=== PATIENT | male | born 1985 | race Caucasian/White ===

== ENCOUNTER 2022-03-02 22:16 | Emergency (ER) | payer OTHER, SELFPAY ==
--- NOTE | 2022-03-02 22:12 | ED.OVERDOSE ---
HPI - Overdose General Chief Complaint: Overdose Stated Complaint: overdose Time Seen by Provider: 03/02/22 22:24 Related Data Previous Rx's Medication Instructions Recorded naloxone 4 mg/actuation nasal 4 mg intranasal Q2M PRN opioid 03/02/22 spray (Narcan) overdose #2 ea ondansetron 4 mg disintegrating 4 mg PO ONCE PRN nausea and 03/03/22 tablet vomiting #10 tabs Allergies Allergy/AdvReac Type Severity Reaction Status Date / Time No Known Allergies Allergy Verified 03/02/22 22:20 [facility] Social History Social History Alcohol intake: never Patient Tobacco Use Status: Current everyday Tobacco user Use of substances other than those prescribed or required for medical reasons: Yes Substance Use Type: Heroin Advance Directives: No Advance Directives Information Provided: Yes Physical Exam Vital Signs: Vital Signs: Last Vital Signs Temp 98.6 F 03/02/22 22:29 Pulse 94 03/03/22 02:12 Resp 15 03/03/22 02:12 BP 98/59 L 03/03/22 02:12 Pulse Ox 98 03/03/22 02:12 O2 Del Method 03/03/22 02:12 BMI result Body Mass Index 29.5 MDM - Overdose Lab Data Labs: Lab Results 03/02/22 Range/Units 22:25 POC Glucose 338 H (60-115) mg/dL Discharge Plan Discharge Clinical Impression: Overdose of fentanyl Patient Disposition: Home, Self-Care Additional Instructions: Take your medications as prescribed. If you were prescribed antibiotics today, it is important that you take your medication to their entirety, do not skip any doses, do not finish them early. Follow-up with your primary care provider this week. Return to the emergency department with new or worsening symptoms. Such as fevers, chills, chest pain, shortness of breath, nausea, vomiting, dizziness, headache, vision changes, lethargy In case of emergency call 911 We offered use substance use disorder evaluation however you refuse. We will give you resources to go home with. I have sent Narcan to her pharmacy. Prescriptions: New naloxone [Narcan] 4 mg/actuation spray,non-aerosol 4 mg intranasal Q2M PRN (Reason: opioid overdose) Qty: 2 0RF Rx Instructions: spray 1 dose into ONE nostril; alternate nostrils w each dose until help arrives ondansetron 4 mg tablet,disintegrating 4 mg PO ONCE PRN (Reason: nausea and vomiting) Qty: 10 0RF Referrals: Physician,Unknown J [Primary Care Provider] - 2 days Interventions: ED Discharge Assessment Last Done: 03/03/22 02:13 Discharge Date/Time: 03/03/22 02:13
[2022-03-02 22:22] VITALS: BP 134/74; PULSE 110; BMI 29.5
--- NOTE | 2022-03-02 22:24 | ED_ITS ---
HPI - Overdose General Chief Complaint: Overdose Stated Complaint: overdose Time Seen by Provider: 03/02/22 22:24 Source: patient and EMS Mode of arrival: EMS Limitations: no limitations History of Present Illness HPI Narrative: 37 year old male history of opiate abuse presenting to the emergency department via ambulance for a fentanyl overdose just prior to his arrival. According to EMS patient was found unresponsive with paraphernalia around him, he was found by his girlfriend. Patient was bagged on the scene and was given 8 mg of intranasal Narcan before he woke up. Patient reports that he has fentanyl, tells me he has been clean for 2 months he tells me that he bought a quarter of a g and use less than a quarter of that. I asked him why he used drugs today he tells me I am not sure I do not think my tolerance is where it use to be . He denies suicidal and homicidal ideation. Denies anxiety and depression. Denies any medical complaints at this time. According to EMS and patient no trauma, no falls and no head strike. Patient would not like to speak to somebody for substance use disorder, refusing a substance use disorder evaluation. EMS did report that they had a sugar in the 400s, patient is not a diabetic. We obtained his sugar upon his arrival and it was mid 300s. Patient tells us that he ate prior to overdosing. MD complaint: accidental overdose Onset (ago): minute(s) (35) Timing confirmed by: other (Girlfriend ) Related Data Previous Rx's Medication Instructions Recorded naloxone 4 mg/actuation nasal 4 mg intranasal Q2M PRN opioid 03/02/22 spray (Narcan) overdose #2 ea Allergies Allergy/AdvReac Type Severity Reaction Status Date / Time No Known Allergies Allergy Verified 03/02/22 22:20 Review of Systems Review of Systems: Constitutional : No Weight loss, No Fever, No Chills, No Fatigue, No Malaise ENT/Mouth : No sore throat, No Rhinorrhea Eyes: No Eye Pain, No Swelling, No Redness Cardiovascular : No Chest Pain, No SOB, No Dyspnea on Exertion, No Orthopnea, No Edema, No Palpitations Respiratory : No Cough, No Sputum, No Wheezing Gastrointestinal : No Nausea, No Vomiting, No Diarrhea, No Constipation, No abdominal Pain, No Hematochezia, No Melena Genitourinary : No Dysuria, No Urinary Frequency, No Hematuria, Musculoskeletal : No joint pain, No Myalgias, No Joint Swelling Skin : No Skin Lesions, No rash Neuro : No Weakness, No Numbness, No Dizziness, No Headache Psych : No Anxiety/Panic, No Depression, No SI/HI All other systems reviewed and are negative Yes all other systems are reviewed and are negative [facility] Past Medical History Attestation statement: The following information was validated with the patient. Source: old records reviewed and nursing notes reviewed Social History Social History Alcohol intake: never Patient Tobacco Use Status: Current everyday Tobacco user Use of substances other than those prescribed or required for medical reasons: Yes Substance Use Type: Heroin Physical Exam Vital Signs: Vital Signs: Last Vital Signs Temp 98.6 F 03/02/22 22:29 Pulse 107 H 03/02/22 22:29 Resp 15 03/02/22 22:29 BP 141/89 H 03/02/22 22:29 Pulse Ox 96 03/02/22 22:29 O2 Del Method 03/02/22 22:29 BMI result Body Mass Index 29.5 VSS Appearance: Alert.? Oriented X3.? No acute distress.? Head: Normocephalic, atraumatic, no step-offs or deformities Eyes: Pupils equal, round and reactive to light.? ENT: Pharynx normal.? Neck: Normal inspection.? Neck supple.? CVS: Normal heart rate and rhythm.? Pulses normal.? Respiratory: No respiratory distress.? Breath sounds normal.? Abdomen: Soft and nontender.? Skin: Skin warm and dry.? Normal skin color.? Normal skin turgor.? Extremities: No lower extremity edema.? No calf ttp. 5/5 strength to bilateral upper and lower extremities Back: No midline tenderness, no C-spine tenderness, full range of motion, no CVA tenderness bilaterally Neuro: Oriented X 3.? No motor deficit.? No sensory deficit. CN 2-12 intact Course Reevaluation(s) Reevaluation #1: Patient's vital signs have remained stable. Patient refusing further intervention. Initially he was vomiting, received Zofran and this has improved his symptoms. At this time he feels better. Denying SI and HI. Again refusing substance use disorder evaluation. At this time patient will be discharged home. Will discharge him with Narcan. Time: 00:52 Reevaluation #2: Patient tells me he is feeling much better. Neuro exam nonfocal, ambulating with steady gait. Requesting to go home. He will be picked up by his girlfriend. Time: 01:21 MDM - Overdose MDM Narrative Medical decision making narrative: 2219 37-year-old male presents with accidental fentanyl overdose after being clean for 2 months. Denies medical complaints at this time. Denies SI and HI. Was initially bagged by EMS and given 8 mg of intranasal Narcan. Physical examination benign. No evidence signs of trauma. Neuro exam is nonfocal. Patient following commands alert and oriented x3, vital signs stable. Plan at this time is to monitor patient, cardiac monitoring. No signs of acute trauma, no headache, vision changes or dizziness therefore no need for head CT at this time. Lungs are clear low suspicion for pneumonia or pulmonary edema. Patient refusing a substance use disorder evaluation. Medical Records Attestation: I reviewed the patient's medical records. Lab Data Attestation: I reviewed the patient's lab results. Labs: Lab Results 03/02/22 Range/Units 22:25 POC Glucose 338 H (60-115) mg/dL Critical Care Time Critical Care Time Critical Care Time: No Discharge Plan Discharge Clinical Impression: Overdose of fentanyl Patient Disposition: Home, Self-Care Additional Instructions: Take your medications as prescribed. If you were prescribed antibiotics today, it is important that you take your medication to their entirety, do not skip any doses, do not finish them early. Follow-up with your primary care provider this week. Return to the emergency department with new or worsening symptoms. Such as fevers, chills, chest pain, shortness of breath, nausea, vomiting, dizziness, headache, vision changes, lethargy In case of emergency call 911 We offered use substance use disorder evaluation however you refuse. We will give you resources to go home with. I have sent Narcan to her pharmacy. Prescriptions: New naloxone [Narcan] 4 mg/actuation spray,non-aerosol 4 mg intranasal Q2M PRN (Reason: opioid overdose) Qty: 2 0RF Rx Instructions: spray 1 dose into ONE nostril; alternate nostrils w each dose until help a rrives
[2022-03-02 22:29] VITALS: BP 141/89; PULSE 107; RESP 15; TEMP 37; O2SAT 96
[2022-03-02 22:29] LABS: Glucose, Whole Blood 338 mg/dL (60-115)
--- NOTE | 2022-03-02 22:47 | PC.NURSE ---
Provider made aware of patients POC. Provider does not want an IV line.
[2022-03-02] MEDS: Ondansetron ODT 4 MG TAB.RAPDIS TRANSLINGU (23:09)
[2022-03-03 02:12] VITALS: BP 98/59; PULSE 94; RESP 15; O2SAT 98
== END 2022-03-03 02:13 | disposition home or self-care (01) ==
PROVIDERS: Emergency Provider Internal Medicine
DX: T40.411A Poisoning by fentanyl or fentanyl analogs, accidental (unintentional), initial encounter (principal); Y92.9 Unspecified place or not applicable; F17.200 Nicotine dependence, unspecified, uncomplicated; R11.10 Vomiting, unspecified
CPT/HCPCS: 82947; 99283; 99284